=== PATIENT | male | born 1980 | race Caucasian/White ===

== ENCOUNTER 2023-07-27 04:33 | Day surgery (SDC) | payer BC, OTHER ==
[2023-07-23 11:37] VITALS: BMI 31.4
[2023-07-27 11:47] VITALS: RESP 20
[2023-07-27] MEDS ORDERED: MIDAZOLAM HCL 2 MG/2 ML SINGLE DOSE VIAL ONE ×2 (14:51→15:00)
[2023-07-27] MEDS ORDERED: KETOROLAC TROMETHAMINE 30 MG/1 ML VIAL ONE (15:00)
[2023-07-27] MEDS ORDERED: FENTANYL CITRATE/PF 50 MCG/ML VIAL ONE (15:01)
[2023-07-27 15:30] VITALS: TEMP 97.3
[2023-07-27 15:55] VITALS: BP 125/70; PULSE 68
== END 2023-07-27 15:57 | disposition home or self-care (01) ==
LOC: JASU-SURG 04:33
PROVIDERS: ATTEND Urology
PROC: 0TF3XZZ Fragmentation in Right Kidney Pelvis, External Approach (ICD-10-PCS; principal; 2023-07-27 13:30)
DX: N20.0 Calculus of kidney (principal)